=== PATIENT | female | born 1960 | race Two or more races ===

== ENCOUNTER 2021-10-31 11:22 | Emergency (ER) | payer OTHER ==
[~2021-10-31] VITALS: Ht 165.1 cm; Wt 70.0 kg
[2021-10-31 12:13] LABS: BASOPHILS % 0.5 % (0.0-2.0); EOSINOPHILS % 1.4 % (0.0-5.0); HEMATOCRIT. 37.7 % (36.0-48.0); HEMOGLOBIN. 12.8 g/dL (12.0-16.0); LYMPHOCYTES % 17.5 % (20.0-50.0); MEAN CORPUSCULAR HEMOGLOBIN 31.4 pg (28.0-32.0); MEAN CORPUSCULAR VOLUME 92.3 fL (81.0-99.0); MEAN PLATELET VOLUME 8.2 fl (7.4-10.4); MONOCYTES % 7.7 % (2.0-8.0); NEUTROPHILS % 72.9 % (40.0-76.0); PLATELET 215 x1000/uL (130-400); RED BLOOD CELL COUNT 4.08 mill/uL (4.2-5.4); RED CELL DISTRIBUTION WIDTH 13.2 % (11.6-14.6)
[2021-10-31 12:22] LABS: CHLORIDE 106 mEq/L (98-107)
[2021-10-31 14:05] VITALS: BP 125/87
[2021-10-31] MEDS ORDERED: SODIUM CHLORIDE 0.9% 1,000 ML IV ONE (14:15)
== END 2021-10-31 15:47 | disposition home or self-care (01) ==
LOC: ER 11:22 → CANBEDREQ 21:26
DX: R55 Syncope and collapse (principal); R42 Dizziness and giddiness; Z98.890 Other specified postprocedural states
CPT/HCPCS: 36415; 70450; 71045; 80053; 83880; 84484; 85025; 93005; 96360; 99285; J7030